=== PATIENT | male | born 1990 | race African-American/Black ===

== ENCOUNTER 2021-09-05 20:18 | Emergency (ER) | payer OTHER ==
[2021-09-05 20:28] VITALS: BP 99/54; PULSE 74; TEMP 97.8; BMI 20.7
[2021-09-05] MEDS ORDERED: KETOROLAC TROMETHAMINE 30 MG/1 ML VIAL IM ONE (22:18)
[2021-09-05] MEDS ORDERED: KETOROLAC TROMETHAMINE 30 MG/1 ML VIAL ONE (22:21)
== END 2021-09-05 23:32 | disposition home or self-care (01) ==
LOC: JERFT 20:18
PROC: 3E0233Z Introduction of Anti-inflammatory into Muscle, Percutaneous Approach (ICD-10-PCS; principal; 2021-09-05)
DX: S63.501A Unspecified sprain of right wrist, initial encounter (principal); X50.0XXA Overexertion from strenuous movement or load, initial encounter
CPT/HCPCS: 73110-TC-RT-FY; 73130-TC-RT-FY; 99284-25